=== PATIENT | female | born 1940 | race Caucasian/White ===

== ENCOUNTER 2017-10-24 09:15 | Emergency (ER) | payer OTHER ==
[~2017-10-24] VITALS: Ht 157.5 cm; Wt 63.5 kg
[~2017-10-24 09:15] MED LIST: CALCAVITD PO; CIPR500 PO; CRANBERRY PO; MULVITMIND PO; OXYACE5T PO; POTASSIUM PO
[2017-10-24] MEDS ORDERED: LEVSOD88 PO (09:31)
[2017-10-24] MEDS ORDERED: TRIM100 PO (09:31)
[2017-10-24] MEDS ORDERED: CEPH500 PO (10:32)
[2017-10-24] MEDS ORDERED: Norco 5-325 Ta1 EACH PO (10:32)
== END 2017-10-24 10:51 | disposition home or self-care (01) ==
LOC: ER 09:15
DX: S02.2XXB Fracture of nasal bones, initial encounter for open fracture (principal); S01.81XA Laceration without foreign body of other part of head, initial encounter; W55.12XA Struck by horse, initial encounter; Z79.899 Other long term (current) drug therapy
CPT/HCPCS: 12013; 70160; 90471; 90714; 99283

== ENCOUNTER → 2017-11-12 | Outpatient (CLI) | payer OTHER ==
[~2017-11-12] MED LIST changes: +CEPH500 PO; +LEVSOD88 PO; +Norco 5-325 Ta1 EACH PO; +TRIM100 PO
== END | disposition home or self-care (01) ==
LOC: LAB EV 11:20
DX: R30.0 Dysuria (principal)
CPT/HCPCS: 87086

== ENCOUNTER → 2017-12-17 | Outpatient (CLI) | payer OTHER | END | disposition home or self-care (01) | LOC: LAB SHORT 16:05 → LAB EV 16:05 | DX: N39.0 Urinary tract infection, site not specified (principal) | CPT/HCPCS: 87077; 87086; 87186 ==

== ENCOUNTER → 2018-01-09 | Outpatient (CLI) | payer OTHER | END | disposition home or self-care (01) | LOC: LAB SHORT 09:06 → LAB EV 09:06 | DX: N39.0 Urinary tract infection, site not specified (principal) | CPT/HCPCS: 87077; 87086; 87186 ==

== ENCOUNTER → 2018-04-30 | Outpatient (CLI) | payer OTHER | END | disposition home or self-care (01) | LOC: LAB EV 13:36 → LAB SHORT 13:36 | DX: N39.0 Urinary tract infection, site not specified (principal) | CPT/HCPCS: 87077; 87086; 87186 ==

== ENCOUNTER → 2018-05-30 | Outpatient (CLI) | payer OTHER | LOC: LAB EV 14:36 | DX: N30.20 Other chronic cystitis without hematuria (principal) | CPT/HCPCS: 87077; 87086; 87186 ==

== ENCOUNTER → 2019-02-11 | Outpatient (CLI) | payer OTHER | END | disposition home or self-care (01) | LOC: LAB 19:05 → LAB SHORT 19:05 | DX: R33.9 Retention of urine, unspecified (principal) | CPT/HCPCS: 87086 ==

== ENCOUNTER → 2019-03-11 | Outpatient (CLI) | payer OTHER | END | disposition home or self-care (01) | LOC: LAB SHORT 15:42 → LAB EV 15:42 | DX: N39.0 Urinary tract infection, site not specified (principal) | CPT/HCPCS: 87077; 87086; 87186 ==

== ENCOUNTER → 2019-06-24 | Outpatient (CLI) | payer OTHER | END | disposition home or self-care (01) | LOC: LAB EV 16:29 → LAB SHORT 16:29 | DX: N39.0 Urinary tract infection, site not specified (principal) | CPT/HCPCS: 87077; 87086; 87186 ==

== ENCOUNTER → 2019-08-04 | Outpatient (CLI) | payer OTHER ==
[2019-08-06 14:06] LABS: HPV 16 Negative (Negative); HPV 18 Negative (Negative); HPV OTHER HR TYPES Negative (Negative)
== END | disposition home or self-care (01) ==
LOC: LAB SHORT 15:41 → LAB 15:41
PROVIDERS: Nurse Practitioner Women's Health
DX: Z12.72 Encounter for screening for malignant neoplasm of vagina (principal); Z91.89 Other specified personal risk factors, not elsewhere classified
CPT/HCPCS: 87624; G0123

== ENCOUNTER 2020-12-21 07:52 | Day surgery (SDC) | payer OTHER ==
[~2020-12-21] VITALS: Ht 154.9 cm; Wt 66.7 kg
[~2020-12-21 07:52] MED LIST changes: +CLIMARA1 EACH TOP; +ELIQUIS5 MG PO; +LEVO-T50 MCG PO; +MAGNESIUM OXID500 MG PO; +METO25ER PO
[2020-12-21] MEDS ORDERED: VITAMIN D325 MC3 PO (08:37)
[2020-12-21] MEDS ORDERED: Vitamin B-121000 MCG PO (08:37)
--- NOTE | 2020-12-21 10:30 | NUR ---
DISCHARGE PT REMAINED A&OX3 AND DENIED ANY PAIN DURING RECOVERY. PT ABLE TO DRINK WATER WITH EASE. PT ABLE TO DRESS SELF INDEPENTANTLY. IV DC'D WITH CANULA IN TACT. POST EKG PERFORMED. PT'S HEART RATE REMAINS IN THE LOWER 50'S TO [place] 40'S. DR. MENDENHALL AWARE. DISCHARGE PAPERWORK GONE OVER WITH PT AND SPOUSE. PT AND SPOUSE VERBALLY STATED THE UNDERSTANDING OF THE DISCHARGE EDUCATION AND DENIED ANY QUESTIONS AT THIS TIME. PT WHEELED OUT BY THIS NURSE.
== END 2020-12-21 10:30 | disposition home or self-care (01) ==
LOC: MHTC 07:52
DX: I48.92 Unspecified atrial flutter (principal); I48.91 Unspecified atrial fibrillation; I10 Essential (primary) hypertension; E89.0 Postprocedural hypothyroidism; R00.1 Bradycardia, unspecified; R94.31 Abnormal electrocardiogram [ECG] [EKG]; I87.2 Venous insufficiency (chronic) (peripheral); I83.90 Asymptomatic varicose veins of unspecified lower extremity; Z79.01 Long term (current) use of anticoagulants
CPT/HCPCS: 92960; 93005; 93010; 93312; 93325; 99152; A9270; J2250; J2310; J3010; J7030

== ENCOUNTER → 2021-01-05 | Outpatient (CLI) | payer OTHER ==
[~2021-01-05] MED LIST changes: +VITAMIN D325 MC3 PO; +Vitamin B-121000 MCG PO
== END | disposition home or self-care (01) ==
LOC: LAB SHORT 14:02 → LAB EV 14:02
DX: N39.0 Urinary tract infection, site not specified (principal)
CPT/HCPCS: 87077; 87086; 87186

== ENCOUNTER 2021-02-10 05:48 | Day surgery (SDC) | payer OTHER ==
[~2021-02-10] VITALS: Ht 154.9 cm; Wt 66.0 kg
--- NOTE | 2021-02-10 09:25 | NUR ---
PATIENT RETURNED FROM THE [facility] S/P PPM INSERTION. PATIENT IN A RECLINER AND MONITOR APPLIED. CALL LIGHT IN REACH. SERVED COFFEE AND WATER. AWAITING BREAKFAST TRAY. IVF AT 50 ML/HR. NO PAIN NOTED. LEFT CHEAT WALL WITH DRESSING IN PLACE. NO SWELLING AND NO BLEEDING NOTED.
--- NOTE | 2021-02-10 09:42 | NUR ---
PRESCRIPTION CALLED INTO [facility].
[2021-02-10] MEDS ORDERED: CEPH500 PO (09:48)
--- NOTE | 2021-02-10 10:35 | NUR ---
1010 BREAKFAST TRAY SERVED AND PATIENT FEEDING SELF. MONITOR REAPPLIED AFTER PATIENT IS UP TO THE RESTROOM AND BACK TO CHAIR. NO DIZZINESS NOTED. LEFT CHEST WALL SITE IS TENDER.
--- NOTE | 2021-02-10 11:01 | NUR ---
PATIENT GIVEN TYLENOL ORDERED FOR SURGICAL SITE PAIN.
--- NOTE | 2021-02-10 11:21 | NUR ---
DR. MENDENHALL AT THE BEDSIDE AND SPOKE WITH THE PATIENT. ALL QUESTIONS ANSWERED.
--- NOTE | 2021-02-10 12:43 | NUR ---
EKG PERFORMED AT THE BEDSIDE, PLACED ON CHART FOR REVIEW. LUNCH TRAY SERVED.
--- NOTE | 2021-02-10 13:56 | NUR ---
ICE PACK APPLIED TO THE LEFT CHEST WALL, SORENESS AT THE INCISION SITE. SLING APPLIED TO THE LEFT ARM. PATIENT GIVEN DIACHARGE PACKET AND READING OVER THE INFORMATION NOW.
--- NOTE | 2021-02-10 14:19 | NUR ---
DR. MENDENHALL AT THE BEDSIDE WITH THE PACEMAKER INTERROGATOR TO VERIFY THE SETTINGS.
--- NOTE | 2021-02-10 14:35 | NUR ---
SHREYA CALLED AND HE IS ON HIS WAY. PATIENT UP AND DRESSING SELF. SLING REAPPLIED AND GIVEN ICE BAG TO TAKE HOME. PIV REMOVED AND PRESSURE DRESSING APPLIED. VSS. OFF MONITOR. VITALS UPDATED ON CHART. REVEIWED ALL DISCHARGE INSTRUCTIONS AND SHELBI SIGNED COPIES AND GIVEN ALL INFORMATION IN DISCHARGE FOLDER.
--- NOTE | 2021-02-10 15:07 | NUR ---
PATIENT DISCHARGED HOME VIA WHEELCHAIR WITH ALL BELONGINGS IN HER POSSESSION.
== END 2021-02-10 15:37 | disposition home or self-care (01) ==
LOC: MHTC 05:48
DX: I49.5 Sick sinus syndrome (principal); I48.92 Unspecified atrial flutter; I45.5 Other specified heart block; R42 Dizziness and giddiness; I11.9 Hypertensive heart disease without heart failure; I70.0 Atherosclerosis of aorta; Z95.0 Presence of cardiac pacemaker
CPT/HCPCS: 33208; 71046; 76937; 93005; 93010; 99152; 99153; A9270; C1781; C1785; C1894; C1898; J0690; J1644; J2250; J3010; J7030; J7040

== ENCOUNTER 2021-03-27 17:48 | Emergency (ER) | payer OTHER ==
[~2021-03-27] VITALS: Ht 154.9 cm; Wt 65.8 kg
[2021-03-27 20:04] LABS: BASOPHILS PERCENT AUTO 0 % (0-2); EOSINOPHILS PERCENT AUTO 0 % (0-6); Hematocrit 39.2 % (33.0-51.0); Hemoglobin 12.5 g/dL (11.5-16.0); IMMATURE GRAN ABSOLUTE AUTO 0.01 K/mm3 (0.00-0.10); IMMATURE GRAN PERCENT AUTO 0 % (0-1); LYMPHOCYTES ABSOLUTE AUTO 0.51 K/mm3 (0.84-5.20); LYMPHOCYTES PERCENT AUTO 15 % (21-46); MONOCYTES ABSOLUTE AUTO 0.35 K/mm3 (0.16-1.47); MONOCYTES PERCENT AUTO 10 % (4-13); Mean Corpuscular HGB 29.1 pg (26.0-34.0); Mean Corpuscular HGB Conc 31.9 g/dL (31.5-36.5); Mean Corpuscular Volume 91 fL (80-100); Mean Platelet Volume 10.5 fL (9.1-12.4); NEUTROPHILS ABSOLUTE AUTO 2.65 K/mm3 (1.96-9.15); NEUTROPHILS PERCENT AUTO 75 % (41-73); Platelet Count 120 K/mm3 (150-400); RDW Standard Deviation 47.1 fL (35.1-46.3); White Blood Cell Count 3.52 K/mm3 (4.00-11.30)
[2021-03-27 20:37] LABS: Alanine Aminotransfer (ALT/SGP 26 U/L (12-78); Albumin, Blood 3.5 g/dL (3.4-5.0); Alk Phos 58 U/L (50-136); Anion Gap 4 mmol/L (6-16); Aspartate Aminotrans (AST/SGOT 36 U/L (12-37); Bilirubin, Total 0.5 mg/dL (0.1-1.0); Blood Urea Nitrogen 14 mg/dL (8-24); Bun/Creatinine Ratio 25.7 (12.0-20.0); CO2, Blood 27 mmol/L (21-32); Calcium, Blood 8.2 mg/dL (8.5-10.1); Chloride, Blood 106 mmol/L (98-108); Creatinine, Blood 0.55 mg/dL (0.40-1.00); Globulin, Blood 3.4 g/dL (2.2-4.0); Glomerular Filtration Rate >60 (60-); Glucose, Blood 86 mg/dL (70-99); Potassium, Blood 3.5 mmol/L (3.5-5.5); Sodium, Blood 137 mmol/L (136-145); Total Protein, Blood 6.9 g/dL (6.4-8.2); Troponin I <0.015 ng/mL (0.000-0.040)
== END 2021-03-27 22:50 | disposition home or self-care (01) ==
LOC: ER 17:48
PROVIDERS: Physician Assistant
DX: R42 Dizziness and giddiness (principal); Z79.01 Long term (current) use of anticoagulants; Z79.899 Other long term (current) drug therapy
CPT/HCPCS: 36415; 71046; 80053; 84484; 85025; 93005; 93010; 99284-25

== ENCOUNTER → 2021-03-29 | Outpatient (CLI) | payer OTHER | LOC: LAB SHORT 12:09 → LAB 12:09 | DX: R50.9 Fever, unspecified (principal); N39.0 Urinary tract infection, site not specified | CPT/HCPCS: 87040; 87077; 87086; 87186 ==

== ENCOUNTER → 2021-03-29 | Outpatient (CLI) | payer OTHER ==
[2021-03-29 11:58] LABS: BASOPHILS PERCENT AUTO 0 % (0-2); EOSINOPHILS PERCENT AUTO 0 % (0-6); Hematocrit 39.9 % (33.0-51.0); Hemoglobin 13.2 g/dL (11.5-16.0); IMMATURE GRAN ABSOLUTE AUTO 0.01 K/mm3 (0.00-0.10); IMMATURE GRAN PERCENT AUTO 0 % (0-1); LYMPHOCYTES ABSOLUTE AUTO 0.48 K/mm3 (0.84-5.20); LYMPHOCYTES PERCENT AUTO 15 % (21-46); MONOCYTES ABSOLUTE AUTO 0.25 K/mm3 (0.16-1.47); MONOCYTES PERCENT AUTO 8 % (4-13); Mean Corpuscular HGB 29.7 pg (26.0-34.0); Mean Corpuscular HGB Conc 33.1 g/dL (31.5-36.5); Mean Corpuscular Volume 90 fL (80-100); NEUTROPHILS ABSOLUTE AUTO 2.53 K/mm3 (1.96-9.15); NEUTROPHILS PERCENT AUTO 77 % (41-73); RDW Coefficient Variation 14.1 % (11.7-14.2); RDW Standard Deviation 46.2 fL (35.1-46.3); Red Blood Cell Count 4.45 M/mm3 (3.80-5.20); White Blood Cell Count 3.27 K/mm3 (4.00-11.30)
[2021-03-29 12:20] LABS: Mean Platelet Volume 10.6 fL (9.1-12.4); Platelet Count 109 K/mm3 (150-400)
[2021-03-29 12:39] LABS: Anion Gap 8 mmol/L (6-16); Blood Urea Nitrogen 16 mg/dL (8-24); CO2, Blood 27 mmol/L (21-32); Calcium, Blood 8.3 mg/dL (8.5-10.1); Chloride, Blood 101 mmol/L (98-108); Creatinine, Blood 0.53 mg/dL (0.40-1.00); Glomerular Filtration Rate >60 (60-); Glucose, Blood 87 mg/dL (70-99); Potassium, Blood 3.4 mmol/L (3.5-5.5); Sodium, Blood 136 mmol/L (136-145)
== END | disposition home or self-care (01) ==
LOC: LAB SHORT 11:52
PROVIDERS: Physician Assistant Surgical
DX: R50.9 Fever, unspecified (principal)
CPT/HCPCS: 80048; 85025